=== PATIENT | female | born 1975 | race Two or more races ===

== ENCOUNTER 2017-09-27 11:22 | Outpatient (CLI) | payer OTHER | END 2017-09-27 16:20 | disposition home or self-care (01) | LOC: SONOGRAMA 11:22 | DX: E04.1 Nontoxic single thyroid nodule (principal) ==

== ENCOUNTER 2017-10-09 09:23 | Outpatient (CLI) | payer OTHER | END 2017-10-09 09:45 | disposition home or self-care (01) | LOC: LAB 09:23 | DX: D51.3 Other dietary vitamin B12 deficiency anemia (principal); D51.1 Vitamin B12 deficiency anemia due to selective vitamin B12 malabsorption with proteinuria; A49.2 Hemophilus influenzae infection, unspecified site; E06.5 Other chronic thyroiditis; D50.8 Other iron deficiency anemias; D51.8 Other vitamin B12 deficiency anemias; D51.0 Vitamin B12 deficiency anemia due to intrinsic factor deficiency; E03.8 Other specified hypothyroidism; E06.2 Chronic thyroiditis with transient thyrotoxicosis ==

== ENCOUNTER 2018-01-24 07:19 | Outpatient (CLI) | payer OTHER | END 2018-01-24 07:34 | disposition home or self-care (01) | LOC: LAB 07:19 | DX: C56.9 Malignant neoplasm of unspecified ovary (principal) ==

== ENCOUNTER 2018-01-24 08:06 | Outpatient (CLI) | payer OTHER | END 2018-01-24 08:10 | disposition home or self-care (01) | LOC: SONOGRAMA 08:06 | DX: N80.3 Endometriosis of pelvic peritoneum (principal) ==

== ENCOUNTER 2018-05-05 06:51 | Outpatient (CLI) | payer OTHER | END 2018-05-05 07:08 | disposition home or self-care (01) | LOC: LAB 06:51 | DX: D51.1 Vitamin B12 deficiency anemia due to selective vitamin B12 malabsorption with proteinuria (principal); D51.3 Other dietary vitamin B12 deficiency anemia; A49.2 Hemophilus influenzae infection, unspecified site; E06.5 Other chronic thyroiditis; D50.8 Other iron deficiency anemias; D51.8 Other vitamin B12 deficiency anemias; I10 Essential (primary) hypertension; E03.8 Other specified hypothyroidism; D51.0 Vitamin B12 deficiency anemia due to intrinsic factor deficiency; E06.3 Autoimmune thyroiditis ==

== ENCOUNTER → 2018-10-12 | Outpatient (CLI) | payer OTHER | END | disposition home or self-care (01) | LOC: LAB 10:53 | DX: D49.6 Neoplasm of unspecified behavior of brain (principal); Z51.81 Encounter for therapeutic drug level monitoring ==

== ENCOUNTER 2018-11-04 12:38 | Outpatient (CLI) | payer OTHER | END 2018-11-04 15:39 | disposition home or self-care (01) | LOC: MRI 12:38 | DX: D49.6 Neoplasm of unspecified behavior of brain (principal); F51.01 Primary insomnia | CPT/HCPCS: 70553 ==

== ENCOUNTER 2018-11-15 07:40 | Outpatient (CLI) | payer OTHER | END 2018-11-15 07:55 | disposition home or self-care (01) | LOC: LAB 07:40 | DX: D51.1 Vitamin B12 deficiency anemia due to selective vitamin B12 malabsorption with proteinuria (principal); D51.3 Other dietary vitamin B12 deficiency anemia; A49.2 Hemophilus influenzae infection, unspecified site; E06.5 Other chronic thyroiditis; D50.8 Other iron deficiency anemias; D51.8 Other vitamin B12 deficiency anemias; I10 Essential (primary) hypertension; D51.0 Vitamin B12 deficiency anemia due to intrinsic factor deficiency; E78.2 Mixed hyperlipidemia; E03.8 Other specified hypothyroidism; R97.0 Elevated carcinoembryonic antigen [CEA]; R97.8 Other abnormal tumor markers; N63.10 Unspecified lump in the right breast, unspecified quadrant; N63.20 Unspecified lump in the left breast, unspecified quadrant ==

== ENCOUNTER 2019-02-10 07:51 | Outpatient (CLI) | payer OTHER | END 2019-02-10 08:01 | disposition home or self-care (01) | LOC: SONOGRAMA 07:51 | DX: Z12.31 Encounter for screening mammogram for malignant neoplasm of breast (principal); N64.4 Mastodynia ==

== ENCOUNTER → 2019-04-12 | Outpatient (CLI) | payer OTHER | END | disposition home or self-care (01) | LOC: RAD 15:33 | DX: M75.31 Calcific tendinitis of right shoulder (principal) ==

== ENCOUNTER 2019-06-08 09:51 | Outpatient (CLI) | payer OTHER | END 2019-06-08 10:00 | disposition home or self-care (01) | LOC: LAB 09:51 | DX: D51.1 Vitamin B12 deficiency anemia due to selective vitamin B12 malabsorption with proteinuria (principal); D51.3 Other dietary vitamin B12 deficiency anemia; A49.2 Hemophilus influenzae infection, unspecified site; E06.5 Other chronic thyroiditis; D50.8 Other iron deficiency anemias; D51.8 Other vitamin B12 deficiency anemias; I10 Essential (primary) hypertension; D51.0 Vitamin B12 deficiency anemia due to intrinsic factor deficiency; E78.2 Mixed hyperlipidemia; E03.8 Other specified hypothyroidism ==

== ENCOUNTER → 2019-07-21 | Outpatient (CLI) | payer OTHER | END | disposition home or self-care (01) | LOC: MRI 10-19 08:15 | DX: M75.41 Impingement syndrome of right shoulder (principal) | CPT/HCPCS: 73221 ==

== ENCOUNTER 2020-07-15 09:59 | Outpatient (CLI) | payer OTHER | END 2020-07-15 10:30 | disposition home or self-care (01) | LOC: RAD 09:59 | PROVIDERS: ATTEND Physical Medicine & Rehabilitation | DX: M25.811 Other specified joint disorders, right shoulder (principal); S96.911A Strain of unspecified muscle and tendon at ankle and foot level, right foot, initial encounter ==

== ENCOUNTER 2020-07-17 09:41 | Outpatient (CLI) | payer OTHER | END 2020-07-17 09:55 | disposition home or self-care (01) | LOC: SONOGRAMA 09:41 → MAMO-SONO 10:45 | PROVIDERS: ATTEND Physical Medicine & Rehabilitation | DX: M75.111 Incomplete rotator cuff tear or rupture of right shoulder, not specified as traumatic (principal); M25.511 Pain in right shoulder ==

== ENCOUNTER 2020-08-23 08:40 | Outpatient (CLI) | payer OTHER | END 2020-08-23 09:09 | disposition home or self-care (01) | LOC: SONOGRAMA 08:40 → MAMO-SONO 08:45 → SONOGRAMA 09:09 | PROVIDERS: ATTEND Physical Medicine & Rehabilitation | DX: M25.512 Pain in left shoulder (principal); M25.511 Pain in right shoulder ==

== ENCOUNTER 2020-09-05 11:05 | Outpatient (CLI) | payer OTHER | END 2020-09-05 11:15 | disposition home or self-care (01) | LOC: RAD 11:05 | PROVIDERS: ATTEND Orthopaedic Surgery | DX: M79.604 Pain in right leg (principal); M25.571 Pain in right ankle and joints of right foot ==

== ENCOUNTER 2020-09-19 12:22 | Outpatient (CLI) | payer OTHER | END 2020-09-19 12:34 | disposition home or self-care (01) | LOC: SONOGRAMA 12:22 → MAMO-SONO 14:30 | PROVIDERS: ATTEND Internal Medicine | DX: E04.2 Nontoxic multinodular goiter (principal) ==

== ENCOUNTER 2020-10-18 09:15 | Outpatient (CLI) | payer OTHER | END 2020-10-18 09:28 | disposition home or self-care (01) | LOC: LAB 09:15 | PROVIDERS: ATTEND Internal Medicine Hematology & Oncology | DX: D51.3 Other dietary vitamin B12 deficiency anemia (principal); D51.1 Vitamin B12 deficiency anemia due to selective vitamin B12 malabsorption with proteinuria; A49.8 Other bacterial infections of unspecified site; E06.5 Other chronic thyroiditis; D50.8 Other iron deficiency anemias; D51.8 Other vitamin B12 deficiency anemias; I10 Essential (primary) hypertension; D51.0 Vitamin B12 deficiency anemia due to intrinsic factor deficiency; E03.8 Other specified hypothyroidism; E78.2 Mixed hyperlipidemia; Z11.59 Encounter for screening for other viral diseases ==

== ENCOUNTER 2020-10-18 09:41 | Outpatient (CLI) | payer OTHER | END 2020-10-18 09:59 | disposition home or self-care (01) | LOC: SONOGRAMA 09:41 → MAMO-SONO 10:30 | PROVIDERS: ATTEND Internal Medicine Gastroenterology | DX: R14.0 Abdominal distension (gaseous) (principal); R10.13 Epigastric pain; R19.5 Other fecal abnormalities ==